=== PATIENT | female | born 1970 | race Caucasian/White ===

== ENCOUNTER 2016-09-17 13:03 | Emergency (ER) | payer OTHER ==
[2016-09-17 13:27] VITALS: BP 166/118
--- NOTE | 2016-09-17 15:19 | Emergency Department Report ---
- General Chief Complaint: Upper Respiratory Infection Stated Complaint: CHEST PAIN/SORE THROAT/CHILLS/COUGH/BODY ACHE/ Time Seen by Provider: 09/17/16 15:03 Source: patient Mode of arrival: Ambulatory Limitations: No Limitations - History of Present Illness MD Complaint: fever, cough, nasal congestion -: Gradual, hour(s) (36) Severity: mild Severity scale (0 -10): 2 Quality: aching Consistency: constant Improves With: nothing Context: sick contacts Associated Symptoms: fever, chills, myalgias, headache, nasal congestion Treatments Prior to Arrival: none - Related Data Previous Rx's Medication Instructions Recorded Last Taken Type ALBUTEROL Inhaler [ProAir HFA 2 puff IH QID PRN #1 inhalation 09/17/16 Unknown Rx Inhaler] Oseltamivir [Tamiflu] 75 mg PO BID #10 cap 09/17/16 Unknown Rx Prednisone [predniSONE (Tere) ER 50 mg PO QDAY #5 tablet. 09/17/16 Unknown Rx TAB] Promethazine [Phenergan TAB] 25 mg PO Q6HR PRN #25 tab 09/17/16 Unknown Rx Allergies Allergy/AdvReac Type Severity Reaction Status Date / Time No Known Allergies Allergy Unverified 09/17/16 13:27 ED Review of Systems ROS: Stated complaint: CHEST PAIN/SORE THROAT/CHILLS/COUGH/BODY ACHE/ Other details as noted in HPI Constitutional: chills, fever, malaise Eyes: denies: eye pain, eye discharge, vision change ENT: denies: ear pain, throat pain Respiratory: denies: cough, shortness of breath, wheezing Cardiovascular: denies: chest pain, palpitations Endocrine: no symptoms reported Gastrointestinal: denies: abdominal pain, nausea, diarrhea Genitourinary: denies: urgency, dysuria, discharge Musculoskeletal: arthralgia, myalgia. denies: back pain, joint swelling Skin: denies: rash, lesions Neurological: denies: headache, weakness, paresthesias Psychiatric: denies: anxiety, depression Hematological/Lymphatic: denies: easy bleeding, easy bruising ED Past Medical Hx - Past Medical History Previous Medical History?: Yes Additional medical history: childbirth - Surgical History Past Surgical History?: Yes Additional Surgical History: - Social History Smoking Status: Never Smoker Substance Use Type: Alcohol, Non Opiate Pain, Other - Medications Home Medications: Home Medications Medication Instructions Recorded Confirmed Last Taken Type ALBUTEROL Inhaler [ProAir HFA 2 puff IH QID PRN #1 inhalation 09/17/16 Unknown Rx Inhaler] Oseltamivir [Tamiflu] 75 mg PO BID #10 cap 09/17/16 Unknown Rx Prednisone [predniSONE (Tere) ER 50 mg PO QDAY #5 tablet. 09/17/16 Unknown Rx TAB] Promethazine [Phenergan TAB] 25 mg PO Q6HR PRN #25 tab 09/17/16 Unknown Rx ED Physical Exam - General Limitations: No Limitations General appearance: alert, in no apparent distress - Head Head exam: Present: atraumatic, normocephalic - Eye Eye exam: Present: normal appearance - ENT ENT exam: Present: mucous membranes moist - Neck Neck exam: Present: normal inspection. Absent: tenderness, meningismus, full ROM, lymphadenopathy - Respiratory Respiratory exam: Present: normal lung sounds bilaterally. Absent: respiratory distress, wheezes, rales, rhonchi - Cardiovascular Cardiovascular Exam: Present: regular rate, normal rhythm. Absent: systolic murmur, diastolic murmur, rubs, gallop - GI/Abdominal GI/Abdominal exam: Present: soft, normal bowel sounds - Extremities Exam Extremities exam: Present: normal inspection - Back Exam Back exam: Present: normal inspection - Neurological Exam Neurological exam: Present: alert, oriented X3 - Psychiatric Psychiatric exam: Present: normal affect, normal mood - Skin Skin exam: Present: warm, dry, intact, normal color. Absent: rash ED Course Vital Signs 09/17/16 13:22 Temperature 100.2 F H Pulse Rate 102 H Respiratory 20 Rate Blood Pressure 166/118 O2 Sat by Pulse 100 Oximetry Critical care attestation.: If time is entered above; I have spent that time in minutes in the direct care of this critically ill patient, excluding procedure time. ED Disposition Disposition: DISCHARGED TO HOME OR SELFCARE Is pt being admited?: No Condition: Stable Instructions: Influenza (ED) Prescriptions: ALBUTEROL Inhaler [ProAir HFA Inhaler] 2 puff IH QID PRN #1 inhalation PRN Reason: Shortness Of Breath Oseltamivir [Tamiflu] 75 mg PO BID #10 cap Prednisone [predniSONE (Tere) ER TAB] 50 mg PO QDAY #5 tablet. Promethazine [Phenergan TAB] 25 mg PO Q6HR PRN #25 tab PRN Reason: Nausea Referrals: PRIMARY CARE, [Primary Care Provider] - 3-5 Days Forms: Work/School Release Form(ED)
[2016-09-17] MEDS ORDERED: TYLENOL PO ONE (15:39)
--- NOTE | 2016-09-18 08:25 | XRay Report ---
ROUTINE CHEST, TWO VIEWS: HISTORY: Productive cough, fever. The trachea, heart, mediastinal contour, lung durant and bony thorax are unremarkable. IMPRESSION: Unremarkable chest x-ray.
== END 2016-09-17 17:22 | disposition home or self-care (01) ==
LOC: ED 13:03
DX: R50.9 Fever, unspecified (principal); R09.81 Nasal congestion; R05 Cough; Z53.21 Procedure and treatment not carried out due to patient leaving prior to being seen by health care provider
CPT/HCPCS: 71020; 99283

== ENCOUNTER 2020-08-07 08:43 | Observation (INO) | payer OTHER ==
--- NOTE | 2020-08-07 08:54 | Emergency Department Report ---
Blank Doc - Documentation Documentation: 49-year-old female that presents with heart pulsation/fluttering with chest pain and shortness of breath. 1- This initial assessment/diagnostic orders/clinical plan/ treatment(s) is/are subject to change based on pt's health status, clinical progression and re- assessment by fellow clinical providers in the ED. Further treatment and workup at subsequent clinical provers discretion. Patient/guardians urged not to elope from ED as their condition may be serious if not clinically assessed and managed. 2-cardiac work-up
[2020-08-07 09:20] LABS: Basophils # (Auto) 0.2 K/mm3 (0.0-0.1); Eosinophils # (Auto) 0.1 K/mm3 (0.0-0.4); Eosinophils % (Auto) 1.9 % (0.0-4.3); Monocytes # (Auto) 0.4 K/mm3 (0.0-0.8)
--- NOTE | 2020-08-07 09:30 | XRay Report ---
XR chest routine 2V INDICATION / CLINICAL INFORMATION: Chest Pain. COMPARISON: 09/17/2016 FINDINGS: SUPPORT DEVICES: None. HEART /PULMONARY VASCULATURE: No significant abnormality. LUNGS / PLEURA: No significant pulmonary or pleural abnormality. No pneumothorax. ADDITIONAL FINDINGS: No significant additional findings. IMPRESSION: 1. No acute findings. Signer Name: Eugene Douglas MD Signed: 08/07/2020 9:26 AM Workstation Name: [id number]
[2020-08-07 09:35] LABS: Alanine Aminotransferase 7 units/L (7-56); Albumin 4.2 g/dL (3.9-5); Blood Urea Nitrogen 7 mg/dL (7-17); Calcium 8.8 mg/dL (8.4-10.2); Hemolysis Index 2
[2020-08-07] MEDS ORDERED: ASPIRIN 325 MG TAB PO ONE (09:42)
[2020-08-07] MEDS ORDERED: NITROGLYCERIN 2% OINT 1 GM TP ONE (09:42)
[2020-08-07] MEDS ORDERED: fentaNYL 100 MCG/2 ML INJ IV ONE (09:42)
[2020-08-07] MEDS ORDERED: ONDANSETRON 4 MG/2 ML INJ IV ONE (09:42)
[2020-08-07 09:48] LABS: INR 1.05 (0.87-1.13)
--- NOTE | 2020-08-07 09:48 | Emergency Department Report ---
HPI - General Chief Complaint: Chest Pain Time Seen by Provider: 08/07/20 08:53 - HPI HPI: Room 40 The patient is a 49-year-old female present with a chief complaint of chest pain and syncope. Patient states she awakened this morning feeling weak. Patient states she developed a sharp pain under her left breast. Patient states she began to feel weak lightheaded and elevated heart rate. The patient states she came out of the shower and called to her mother and knew she was about to pass out so she sat herself down in her recliner. The patient's mother came upstairs to find the patient unconscious in the recliner. Patient states she has had s hortness of breath, diaphoresis and nausea without vomiting associated with this chest pain. Patient denies pleurisy or fever. Patient currently gives her pain a score of 2-3/10. The patient states her last stress test occurred over 10 years ago and she has never had a cardiac catheterization ED Past Medical Hx - Past Medical History Previous Medical History?: No Additional medical history: childbirth - Surgical History Past Surgical History?: No Additional Surgical History: - Family History Family history: no significant - Social History Smoking Status: Never Smoker Substance Use Type: None ( denies illicit drug), Alcohol (Rarely) ED Review of Systems ROS: Stated complaint: HEART FLUTTERS/CHEST PAIN Other details as noted in HPI Constitutional: diaphoresis Eyes: denies: eye pain ENT: denies: throat pain Respiratory: shortness of breath Cardiovascular: chest pain, palpitations Endocrine: no symptoms reported Gastrointestinal: nausea. denies: vomiting Genitourinary: denies: dysuria Musculoskeletal: denies: back pain Neurological: denies: headache Physical Exam - Physical Exam Vital Signs: Vital Signs 08/07/20 08:48 Temperature 98.5 F Pulse Rate 93 H Respiratory 20 Rate Blood Pressure 141/88 O2 Sat by Pulse 100 Oximetry Physical Exam: GENERAL: The patient is well-developed well-nourished female lying on stretcher not appearing to be in acute distress. [] HEENT: Normocephalic. Atraumatic. Extraocular motions are intact. Patient has moist mucous membranes. NECK: Supple. Trachea midline CHEST/LUNGS: Clear to auscultation. There is no respiratory distress noted. HEART/CARDIOVASCULAR: Regular. There is no tachycardia. There is no gallop rub or murmur. ABDOMEN: Abdomen is soft, nontender. Patient has normal bowel sounds. There is no abdominal distention. SKIN: There is no rash. There is no edema. There is no diaphoresis. NEURO: The patient is awake, alert, and oriented. The patient is cooperative. The patient has normal speech MUSCULOSKELETAL: There is no evidence of acute injury. ED Course Vital Signs 08/07/20 08:48 Temperature 98.5 F Pulse Rate 93 H Respiratory 20 Rate Blood Pressure 141/88 O2 Sat by Pulse 100 Oximetry ED Medical Decision Making - Lab Data Result diagrams: 08/07/20 09:08 08/07/20 09:08 - EKG Data -: EKG Interpreted by Me EKG shows normal: sinus rhythm Rate: normal - EKG Data When compared to previous EKG there are: previous EKG unavailable Interpretation: other (No ischemic changes seen) - Radiology Data Radiology results: report reviewed (Chest x-ray, CT chest, CT head), image reviewed (Chest x-ray, CT chest, CT head) interpreted by me: Chest x-ray-no focal infiltrates, no pneumothorax. No foreign body seen [facility] [address] [place] [address] XRay Report Signed Patient: HAJA BEJARANO MR#: [id number] : 1970 Acct:[id number] Age/Sex: 49 / F ADM Date: 08/07/20 Loc: ED Attending Dr: Ordering Physician: DENICE MICHAEL NP Date of Service: 08/07/20 Procedure(s): XR chest routine 2V Accession Number(s): [id number] cc: DENICE MICHAEL NP Fluoro Time In Minutes: XR chest routine 2V INDICATION / CLINICAL INFORMATION: Chest Pain. COMPARISON: 09/17/2016 FINDINGS: SUPPORT DEVICES: None. HEART /PULMONARY VASCULATURE: No significant abnormality. LUNGS / PLEURA: No significant pulmonary or pleural abnormality. No pneumothorax. ADDITIONAL FINDINGS: No significant additional findings. IMPRESSION: 1. No acute findings. Signer Name: Saurav Douglas MD Signed: 08/07/2020 9:26 AM Workstation Name: [id number] Transcribed By: JS Dictated By: SAURAV DOUGLAS MD Electronically Authenticated By: SAURAV DOUGLAS MD Signed Date/Time: 08/07/20925 DD/ 4 TD/TT: [address] [address] Cat Scan Report Signed Patient: HAJA BEJARANO MR#: [id number] : 1970 Acct:[id number] Age/Sex: 49 / F ADM Date: 08/07/20 Loc: ED Attending Dr: Ordering Physician: DARLYN SULTANA MD Date of Service: 08/07/20 Procedure(s): CT angio chest Accession Number(s): [id number] cc: DARLYN SULTANA MD CTA CHEST WITH CONTRAST INDICATION : Chest pain, syncope. TECHNIQUE: Axial imaging performed through the chest, with contrast bolus timing set to maximize opacification of the pulmonary arteries. Sagittal and coronal reformatted images. 3-plane MIP reformatted images were obtained. All CT scans at this location are performed using CT dose reduction for ALARA by means of automated exposure control. 100 mL of intravenous contrast administered. COMPARISON: None FINDINGS: Bolus: Contrast bolus timing is adequate. PTE: No filling defect is present to suggest PTE. Mediastinum: Heart and great vessels appear normal. No pathologic mediastinal adenopathy. Lungs: Lungs are clear. Bones: Degenerative changes in the spine with nothing acute. Upper abdomen: Limited images of the upper abdomen demonstrate a few scattered liver hypodensities measuring less than 2 cm. These probably represent small cysts or hemangiomas although they are incompletely evaluated on this exam. IMPRESSION: Negative for PTE. Clear lungs. Liver hypodensities as described. If further evaluation is needed multi phase CT with contrast would provide the most information. Signer Name: Tony Jarrell Jr, MD Signed: 08/07/2020 11:50 AM Workstation Name: [id number] Transcribed By: TTR Dictated By: TONY JARRELL JR, MD Electronically Authenticated By: TONY JARRELL JR, MD Signed Date/Time: 08/07/20 1150 DD/ 1147 TD/TT: [address] [address] Cat Scan Report Signed Patient: HAJA BEJARANO MR#: [id number] : Acct:[id number] Age/Sex: 49 / F ADM Date: 08/07/20 Loc: ED Attending Dr: Ordering Physician: DARLYN SULTANA MD Date of Service: 08/07/20 Procedure(s): CT head/brain wo con Accession Number(s): [id number] cc: DARLYN SULTANA MD CT HEAD WITHOUT CONTRAST INDICATION / CLINICAL INFORMATION: Chest pain, syncope. TECHNIQUE: Axial imaging performed from the skull apex through the skull base without the use of contrast. Sagittal and coronal reformatted images. All CT scans at this location are performed us ing CT dose reduction for ALARA by means of automated exposure control. COMPARISON: None available. FINDINGS: CEREBRAL PARENCHYMA: No acute parenchymal abnormality is appreciated. Chronic infarct in the left subfrontal region measures 2.4 x 1.5 x 1.8 cm. HEMORRHAGE: None. EXTRA- AXIAL SPACES: Normal in size and morphology for the patient's age. VENTRICULAR SYSTEM: Normal in size and morphology for the patient's age. MIDLINE SHIFT OR HERNIATION: None. CEREBELLUM / BRAINSTEM: No significant abnormality. CALVARIUM: No significant abnormality. ORBITS: Normal as visualized. PARANASAL SINUSES / MASTOID AIR CELLS: Normal as visualized. SOFT TISSUES of HEAD: No significant abnormality. ADDITIONAL FINDINGS: None. IMPRESSION: No acute intracranial abnormality. Chronic left frontal infarct as described. Signer Name: Tony Jarrell Jr, MD Signed: 08/07/2020 11:33 AM Workstation Name: [id number] Transcribed By: TTR Dictated By: TONY JARRELL JR, MD Electronically Authenticated By: TONY JARRELL JR, MD Signed Date/Time: 08/07/20 113 DD/ 1132 TD/TT: - Differential Diagnosis ACS, pericarditis, GERD, PE Critical care attestation.: If time is entered above; I have spent that time in minutes in the direct care of this critically ill patient, excluding procedure time. ED Disposition Clinical Impression: Chest pain, Syncope Disposition: OP ADMIT IP TO THIS HOSP Is pt being admited?: Yes Does the pt Need Aspirin: Yes Condition: Fair Instructions: Chest Pain (ED), Syncope (ED) Referrals: PRIMARY CARE, [Primary Care Provider] - 3-5 Days Time of Disposition: 12:18 (Hospitalist paged) HEART Score - HEART Score History: Moderately suspicious EKG: Normal Age: 45-65 Risk factors: 1-2 risk factors Troponin: Troponin T < 0.010 ng/mL (0.00-0.029) 08/07/20 09:08 Troponin: < normal limit HEART Score: 3
[2020-08-07 09:54] LABS: Partial Thromboplastin Time 23.4 Sec. (24.2-36.6)
[2020-08-07 10:14] LABS: BUN/Creatinine Ratio 10
[2020-08-07 10:30] LABS: Hematocrit 22.9 % (30.3-42.9); Hemoglobin 6.6 gm/dl (10.1-14.3); Mean Corpuscular HGB Conc 29 % (30-34); Mean Corpuscular Volume 52 fl (79-97); Platelet Count 461 K/mm3 (140-440); Red Blood Count 4.42 M/mm3 (3.65-5.03); Red Cell Distribution Width 19.8 % (13.2-15.2)
[2020-08-07 10:31] LABS: Basophils % (Auto) 2.6 % (0.0-1.8); Lymphocytes # (Auto) 1.6 K/mm3 (1.2-5.4); Lymphocytes % (Auto) 30.8 % (13.4-35.0)
--- NOTE | 2020-08-07 11:38 | Cat Scan Report ---
CT HEAD WITHOUT CONTRAST INDICATION / CLINICAL INFORMATION: Chest pain, syncope. TECHNIQUE: Axial imaging performed from the skull apex through the skull base without the use of cont rast. Sagittal and coronal reformatted images. All CT scans at this location are performed using CT dose reduction for ALARA by means of automated exposure control. COMPARISON: None available. FINDINGS: CEREBRAL PARENCHYMA: No acute parenchymal abnormality is appreciated. Chronic infarct in the left sub frontal region measures 2.4 x 1.5 x 1.8 cm. HEMORRHAGE: None. EXTRA-AXIAL SPACES: Normal in size and morphology for the patient's age. VENTRICULAR SYSTEM: Normal in size and morphology for the patient's age. MIDLINE SHIFT OR HERNIATION: None. CEREBELLUM / BRAINSTEM: No significant abnormality. CALVARIUM: No significant abnormality. ORBITS: Normal as visualized. PARANASAL SINUSES / MASTOID AIR CELLS: Normal as visualized. SOFT TISSUES of HEAD: No significant abnormality. ADDITIONAL FINDINGS: None. IMPRESSION: No acute intracranial abnormality. Chronic left frontal infarct as described. Signer Name: Tony Jarrell Jr, MD Signed: 08/07/2020 11:33 AM Workstation Name: [id number]
--- NOTE | 2020-08-07 11:54 | Cat Scan Report ---
CTA CHEST WITH CONTRAST INDICATION : Chest pain, syncope. TECHNIQUE: Axial imaging performed through the chest, with contrast bolus timing set to maximize opa cification of the pulmonary arteries. Sagittal and coronal reformatted images. 3-plane MIP reformatte d images were obtained. All CT scans at this location are performed using CT dose reduction for ALAR A by means of automated exposure control. 100 mL of intravenous contrast administered. COMPARISON: None FINDINGS: Bolus: Contrast bolus timing is adequate. PTE: No filling defect is present to suggest PTE. Mediastinum: Heart and great vessels appear normal. No pathologic mediastinal adenopathy. Lungs: Lungs are clear. Bones: Degenerative changes in the spine with nothing acute. Upper abdomen: Limited images of the upper abdomen demonstrate a few scattered liver hypodensities m easuring less than 2 cm. These probably represent small cysts or hemangiomas although they are incomp letely evaluated on this exam. IMPRESSION: Negative for PTE. Clear lungs. Liver hypodensities as described. If further evaluation is needed multi phase CT with contrast would provide the most information. Signer Name: Tony Jarrell Jr, MD Signed: 08/07/2020 11:50 AM Workstation Name: [id number]
[2020-08-07 11:57] LABS: Bilirubin,Urine NEG (Negative); Blood,Urine MOD (Negative); Color,Urine Straw (Yellow); Mucus,Urine FEW /HPF; Protein,Urine <15 mg/dL mg/dL (Negative); Urobilinogen,Urine < 2.0 mg/dL (<2.0)
[2020-08-07] MEDS ORDERED: SODIUM CHLORIDE 0.9% 500 ML 500 ML IV NR (21:40)
[2020-08-07] MEDS ORDERED: METOCLOPRAMIDE 10 MG/2 ML INJ IV PRN (21:43)
[2020-08-07] MEDS ORDERED: oxyCODONE /ACETAMINOPHEN 5-325MG TAB PO PRN (21:43)
[2020-08-07] MEDS ORDERED: ONDANSETRON 4 MG/2 ML INJ IV PRN (21:43)
[2020-08-07] MEDS ORDERED: ACETAMINOPHEN 325 MG TAB PO PRN (21:43)
[2020-08-07] MEDS ORDERED: SODIUM CHLORIDE 0.9% 1000 ML 1,000 ML IV SCH (21:45)
--- NOTE | 2020-08-07 21:50 | History and Physical Report ---
History of Present Illness Date of examination: 08/07/20 Date of admission: 08/07/20 12:19 Chief complaint: Chest pain and syncope History of present illness: The patient is a 49-year-old female present with a chief complaint of chest pain and syncope. Patient states she awakened this morning feeling weak. Patient states she developed a sharp pain under her left breast. Patient states she began to feel weak lightheaded and elevated heart rate. The patient states she came out of the shower and called to her mother and knew she was about to pass out so she sat herself down in her recliner. The patient's mother came upstairs to find the patient unconscious in the recliner. Patient states she has had shortness of breath, diaphoresis and nausea without vomiting associated with this chest pain. Patient denies pleurisy or fever. Patient currently gives her pain a score of 2-3/10. The patient states her last stress test occurred over 10 years ago and she has never had a cardiac catheterization - Past Medical History Previous Medical History?: No Additional medical history: childbirth - Surgical History Past Surgical History?: No Additional Surgical History: - Family History Family history: no significant - Social History Smoking Status: Never Smoker Substance Use Type: None ( denies illicit drug), Alcohol (Rarely) Review of Systems ROS: Stated complaint: HEART FLUTTERS/CHEST PAIN Other details as noted in HPI Constitutional: diaphoresis Eyes: denies: eye pain ENT: denies: throat pain Respiratory: shortness of breath Cardiovascular: chest pain, palpitations Endocrine: no symptoms reported Gastrointestinal: nausea. denies: vomiting Genitourinary: denies: dysuria Musculoskeletal: denies: back pain Neurological: denies: headache Medications and Allergies Allergies Allergy/AdvReac Type Severity Reaction Status Date / Time No Known Allergies Allergy Verified 08/07/20 08:46 Home Medications Medication Instructions Recorded Confirmed Last Taken Type No Known Home Medications [No 08/07/20 08/07/20 Unknown History Reported Home Medications] Exam - Constitutional Vitals: Temp Pulse Resp BP Pulse Ox 98.8 F 83 16 140/87 100 08/07/20 19:34 08/07/20 19:34 08/07/20 19:34 08/07/20 20:06 08/07/20 20:06 General appearance: Present: no acute distress, well-nourished - EENT Eyes: Present: PERRL ENT: hearing intact, clear oral mucosa - Neck Neck: Present: supple, normal ROM - Respiratory Respiratory effort: normal Respiratory: bilateral: CTA - Cardiovascular Heart rate: 78 Rhythm: regular Heart Sounds: Present: S1 & S2. Absent: rub, click - Extremities Extremities: pulses symmetrical, No edema Peripheral Pulses: within normal limits - Abdominal General gastrointestinal: Present: soft, non-tender, non-distended, normal bowel sounds Female genitourinary: Present: normal - Rectal Rectal Exam: deferred - Integumentary Integumentary: Present: clear, warm, dry - Musculoskeletal Musculoskeletal: gait normal, strength equal bilaterally - Psychiatric Psychiatric: appropriate mood/affect, intact judgment & insight - Neurologic Neurologic: CNII-XII intact, moves all extremities - Allied Health Allied health notes reviewed: nursing HEART Score - HEART Score EKG: Normal Age: 45-65 Risk factors: 1-2 risk factors Troponin: Troponin T < 0.010 ng/mL (0.00-0.029) 08/07/20 12:12 Troponin: < normal limit Results - Labs CBC & Chem 7: 08/08/20 06:41 08/08/20 06:41 Labs: Laboratory Last Values WBC 5.3 K/mm3 (4.5-11.0) 08/07/20 09:08 RBC 4.42 M/mm3 (3.65-5.03) 08/07/20 09:08 Hgb 6.6 gm/dl (10.1-14.3) L 08/07/20 09:08 Hct 22.9 % (30.3-42.9) L 08/07/20 09:08 MCV 52 fl (79-97) L 08/07/20 09:08 MCH 15 pg (28-32) L 08/07/20 09:08 MCHC 29 % (30-34) L 08/07/20 09:08 RDW 19.8 % (13.2-15.2) H 08/07/20 09:08 Plt Count 461 K/mm3 (140-440) H 08/07/20 09:08 Lymph % (Auto) 30.8 % (13.4-35.0) 08/07/20 09:08 [place]ala % (Auto) 7.0 % (0.0-7.3) 08/07/20 09:08 Eos % (Auto) 1.9 % (0.0-4.3) 08/07/20 09:08 Baso % (Auto) 2.6 % (0.0-1.8) H 08/07/20 09:08 Lymph # (Auto) 1.6 K/mm3 (1.2-5.4) 08/07/20 09:08 [place]ala # (Auto) 0.4 K/mm3 (0.0-0.8) 08/07/20 09:08 Eos # (Auto) 0.1 K/mm3 (0.0-0.4) 08/07/20 09:08 Baso # (Auto) 0.2 K/mm3 (0.0-0.1) H 08/07/20 09:08 Seg Neutrophils % 57.5 % (40.0-70.0) 08/07/20 09:08 Seg Neutrophils # 3.1 K/mm3 (1.8-7.7) 08/07/20 09:08 PT 13.5 Sec. (12.2-14.9) 08/07/20 09:08 INR 1.05 (0.87-1.13) 08/07/20 09:08 APTT 23.4 Sec. (24.2-36.6) L 08/07/20 09:08 D-Dimer 752.8 ng/mlDDU (0-234) H 08/07/20 09:08 Sodium 134 mmol/L (137-145) L 08/07/20 09:08 Potassium 3.7 mmol/L (3.6-5.0) 08/07/20 09:08 Chloride 100.8 mmol/L (98-107) 08/07/20 09:08 Carbon Dioxide 28 mmol/L (22-30) 08/07/20 09:08 Anion Gap 9 mmol/L 08/07/20 09:08 BUN 7 mg/dL (7-17) 08/07/20 09:08 Creatinine 0.7 mg/dL (0.6-1.2) 08/07/20 09:08 Estimated GFR > 60 ml/min 08/07/20 09:08 BUN/Creatinine Ratio 10 % 08/07/20 09:08 Glucose 99 mg/dL (65-100) 08/07/20 09:08 Calcium 8.8 mg/dL (8.4-10.2) 08/07/20 09:08 Magnesium 2.10 mg/dL (1.7-2.3) 08/07/20 09:08 Total Bilirubin 0.20 mg/dL (0.1-1.2) 08/07/20 09:08 AST 14 units/L (5-40) 08/07/20 09:08 ALT 7 units/L (7-56) 08/07/20 09:08 Alkaline Phosphatase 74 units/L (35-129) 08/07/20 09:08 Troponin T < 0.010 ng/mL (0.00-0.029) 08/07/20 12:12 Total Protein 7.6 g/dL (6.3-8.2) 08/07/20 09:08 Albumin 4.2 g/dL (3.9-5) 08/07/20 09:08 Albumin/Globulin Ratio 1.2 % 08/07/20 09:08 Urine Color Straw (Yellow) 08/07/20 11:12 Urine Turbidity Clear (Clear) 08/07/20 11:12 Urine pH 6.0 (5.0-7.0) 08/07/20 11:12 Ur Specific [place] 1.004 (1.003-1.030) 08/07/20 11:12 Urine Protein <15 mg/dl mg/dL (Negative) 08/07/20 11:12 Urine Glucose (UA) Neg mg/dL (Negative) 08/07/20 11:12 Urine Ketones Neg mg/dL (Negative) 08/07/20 11:12 Urine Blood Mod (Negative) 08/07/20 11:12 Urine Nitrite Neg (Negative) 08/07/20 11:12 Urine Bilirubin Neg (Negative) 08/07/20 11:12 Urine Urobilinogen < 2.0 mg/dL (<2.0) 08/07/20 11:12 Ur Leukocyte Esterase Neg (Negative) 08/07/20 11:12 Urine WBC (Auto) 2.0 /HPF (0.0-6.0) 08/07/20 11:12 Urine RBC (Auto) 51.0 /HPF (0.0-6.0) 08/07/20 11:12 Urine Mucus Few /HPF 08/07/20 11:12 Boyd/IV: Voiding Method Toilet Assessment and Plan Advance Directives: Yes (Full code) VTE prophylaxis?: Chemical Plan of care discussed with patient/family: Yes - Patient Problems (1) Chest pain Current Visit: Yes Status: Acute Plan to address problem: Chest pain work-up Serial troponins Lexiscan in the morning (2) Syncope Current Visit: Yes Status: Acute Plan to address problem: Syncope possibly secondary to anemia Carotid duplex scan requested Echocardiogram was not requested (3) Symptomatic anemia Current Visit: Yes Status: Acute Plan to address problem: To transfuse 1 unit of packed red blood cells Patient is iron deficient anemic Iron supplements as outpatient (4) Menorrhagia with irregular cycle Current Visit: Yes Status: Acute Plan to address problem: Menorrhagia secondary to endometriosis versus fibroids Patient to follow-up with [facility] as outpatient (5) DVT prophylaxis Current Visit: Yes Status: Acute Plan to address problem: On SCDs and GI prophylaxis
[2020-08-07] MEDS: FAMOTIDINE 20 MG/2 ML INJ IV SCH (23:42)
[2020-08-08 01:45] LABS: % Iron Saturation 3.24 %
[2020-08-08 07:10] LABS: Basophils # (Auto) 0.1 K/mm3 (0.0-0.1); Basophils % (Auto) 2.5 % (0.0-1.8); Eosinophils # (Auto) 0.2 K/mm3 (0.0-0.4); Eosinophils % (Auto) 2.7 % (0.0-4.3); Hematocrit 24.1 % (30.3-42.9); Hemoglobin 7.3 gm/dl (10.1-14.3); Lymphocytes % (Auto) 33.7 % (13.4-35.0); Mean Corpuscular HGB Conc 30 % (30-34); Mean Corpuscular Volume 56 fl (79-97); Monocytes # (Auto) 0.4 K/mm3 (0.0-0.8); Monocytes % (Auto) 7.7 % (0.0-7.3); Platelet Count 406 K/mm3 (140-440); Red Blood Count 4.35 M/mm3 (3.65-5.03); Red Cell Distribution Width 20.2 % (13.2-15.2)
[2020-08-08 07:24] LABS: Alanine Aminotransferase 6 units/L (7-56); Albumin 3.6 g/dL (3.9-5); BUN/Creatinine Ratio 15; Blood Urea Nitrogen 12 mg/dL (7-17); Calcium 8.4 mg/dL (8.4-10.2); Hemolysis Index 0
[2020-08-08] MEDS: FAMOTIDINE 20 MG/2 ML INJ IV SCH (09:14)
[2020-08-08] MEDS ORDERED: REGADENOSON 0.4 MG/5 ML INJ IV ONE (11:37)
--- NOTE | 2020-08-08 14:01 | Treadmill Report ---
PROCEDURE: Thallium stress test. LEFT VENTRICLE: Left ventricular chamber size is within normal spread. Perfusion study demonstrates homogeneous uptake of the tracer in all segments, no defects identified. Normal apical thinning is noted. Gated analysis demonstrates normal left ventricular systolic function, ejection fraction 71%. CONCLUSION: Normal myocardial perfusion study. JOB# [id number] CA/NTS
--- NOTE | 2020-08-08 15:42 | Ultrasound Report ---
US pelvic complete, US transvaginal INDICATION / CLINICAL INFORMATION: Menorrhagia. TECHNIQUE: Transabdominal. Duplex Color Doppler used: Yes. COMPARISON: None available FINDINGS: UTERUS: Retroflexed uterus measures 11.4 x 8.5 x 9.1 cm. -Endometrial stripe measures 1.4 cm. - Mass lesions: There are at least 3 heterogeneous lesions seen throughout the uterus with the larges t measuring approximately 3.9 cm. RIGHT ADNEXA: No significant ovarian cyst or mass. Normal color Doppler blood flow. LEFT ADNEXA: No significant ovarian cyst or mass. Normal color Doppler blood flow. URINARY BLADDER: No significant abnormality. FREE FLUID: None. ADDITIONAL FINDINGS: None. IMPRESSION: 1. Endometrial stripe is normal in thickness. There are a few uterine lesions which are most likely f ibroids. Otherwise, no significant abnormality. Signer Name: Jose Beckwith MD Signed: 08/08/2020 3:38 PM Workstation Name: [id number]
--- NOTE | 2020-08-08 15:49 | Vascular Lab Report ---
VL carotid duplex BILAT INDICATION / CLINICAL INFORMATION: Syncope COMPARISON: None available. FINDINGS: RIGHT CAROTID: - CCA velocity: 89 cm/sec. - ICA peak systolic velocity: 99 cm/sec. - ICA/CCA PSV Ratio: Normal Right Vertebral Artery: Antegrade flow. LEFT CAROTID: - CCA velocity: 121 cm/sec. - ICA peak systolic velocity: 117 cm/sec. - ICA/CCA PSV Ratio: Normal Left Vertebral Artery: Antegrade flow. IMPRESSION: 1. No occlusion or hemodynamically significant stenosis of the bilateral carotid arteries. Velocity criteria are extrapolated from diameter data as defined by the Society of Radiologists in Ul trasound Consensus Conference, Radiology 2003; 229;340-346. NO STENOSIS (NORMAL) * Plaque = none; ICA PSV < 125 cm/sec; ICA/CCA PSV Ratio < 2.0 <50% STENOSIS * Plaque < 50%; ICA PSV < 125 cm/sec; ICA/CCA PSV Ratio < 2.0 50-69% STENOSIS * Plaque > 50%; ICA PSV = 125-230 cm/sec; ICA/CCA PSV Ratio = 2.0-4.0 >70% BUT <100% STENOSIS * Plaque > 50%; ICA PSV > 230 cm/sec; ICA/CCA PSV Ratio > 4.0 NEAR OCCLUSION * Plaque = visible lumen; ICA PSV = high/low/none; ICA/CCA PSV Ratio = variable TOTAL OCCLUSION * Plaque = no lumen; ICA PSV = none; ICA/CCA PSV Ratio = N/A Signer Name: Jose Beckwith MD Signed: 08/08/2020 3:45 PM Workstation Name: [id number]
--- NOTE | 2020-08-08 17:18 | Discharge Summary ---
Providers - Providers Date of Admission: 08/07/20 12:19 Date of discharge: 08/08/20 Attending physician: PRAVIN CORREIA Primary care physician: [employer] [facility] Hospitalization Condition: Fair Pertinent studies: Pelvic ultrasound Endometrial stripe is normal in thickness There are a few uterine lesions which are most likely fibroids Otherwise no significant abnormality Transvaginal ultrasound Endometrial stripe is normal in thickness There are a few uterine lesions which are most likely fibroids: Hospital course: The patient is a 49-year-old female present with a chief complaint of chest pain and syncope. Patient states she awakened this morning feeling weak. Patient states she developed a sharp pain under her left breast. Patient states she began to feel weak lightheaded and elevated heart rate. The patient states she came out of the shower and called to her mother and knew she was about to pass out so she sat herself down in her recliner. The patient's mother came upstairs to find the patient unconscious in the recliner. Patient states she has had shortness of breath, diaphoresis and nausea without vomiting associated with this chest pain. Patient denies pleurisy or fever. Patient currently gives her pain a score of 2-3/10. The patient states her last stress test occurred over 10 years ago and she has never had a cardiac catheterization Patient had extensive work-up Lexiscan carotid duplex scan negative Pelvic ultrasound Shows fibroids Patient was given 1 unit of packed red blood cells after which she feels a lot better Hemoglobin improved from 6.6-7.3 Assessment and Plan Advance Directives: Yes (Full code) VTE prophylaxis?: Chemical Plan of care discussed with patient/family: Yes - Patient Problems (1) Chest pain Current Visit: Yes Status: Acute Plan to address problem: Chest pain work-up Serial troponins Lexiscan in the morning (2) Syncope Current Visit: Yes Status: Acute Plan to address problem: Syncope possibly secondary to anemia Carotid duplex scan requested Echocardiogram was not requested (3) Symptomatic anemia Current Visit: Yes Status: Acute Plan to address problem: To transfuse 1 unit of packed red blood cells Patient is iron deficient anemic Iron supplements as outpatient (4) Menorrhagia with irregular cycle Current Visit: Yes Status: Acute Plan to address problem: Menorrhagia secondary to endometriosis versus fibroids Patient to follow-up with [facility] as outpatient (5) DVT prophylaxis Current Visit: Yes Status: Acute Plan to address problem: On SCDs and GI prophylaxis Disposition: DC-01 TO HOME OR SELFCARE - Discharge Diagnoses (1) Chest pain Status: Acute (2) Syncope Status: Acute (3) Symptomatic anemia Status: Acute Comment: Patient will be discharged on ferrous gluconate 1 twice daily and follow-up with [facility] (4) Menorrhagia with irregular cycle Status: Acute Comment: patient to follow-up with regarding menorrhagia. Differential diagnosis of uterine fibroids and endometriosis (5) DVT prophylaxis Status: Acute Core Measure Documentation - Palliative Care Palliative Care/ Comfort Measures: Not Applicable - Core Measures Any of the following diagnoses?: none Exam - Constitutional Vitals: Temp Pulse Resp BP Pulse Ox 98.9 F 82 18 126/75 100 08/08/20 08:26 08/08/20 10:00 08/08/20 08:26 08/08/20 11:46 08/08/20 08:26 General appearance: Present: no acute distress, well-nourished - EENT Eyes: Present: PERRL ENT: hearing intact, clear oral mucosa, other (Pale mucous membranes) - Neck Neck: Present: supple, normal ROM - Respiratory Respiratory effort: normal Respiratory: bilateral: CTA - Cardiovascular Heart Sounds: Present: S1 & S2. Absent: rub, click - Extremities Extremities: pulses symmetrical, No edema Peripheral Pulses: within normal limits - Abdominal General gastrointestinal: Present: soft, non-tender, non-distended, normal bowel sounds Female genitourinary: Present: normal - Integumentary Integumentary: Present: clear, warm, dry - Musculoskeletal Musculoskeletal: gait normal, strength equal bilaterally - Psychiatric Psychiatric: appropriate mood/affect, intact judgment & insight - Neurologic Neurologic: CNII-XII intact, moves all extremities Plan Activity: no restrictions Diet: regular Follow up with: IVAN MORAN MD [Primary Care Provider] - 3-5 Days GUCCI BURT MD [Staff Physician] - 7 Days
[2020-08-08 17:56] VITALS: BP 110/78
== END 2020-08-08 18:36 | disposition home or self-care (01) ==
LOC: ED 08:43 → 4A 12:19
PROVIDERS: ADMIT Internal Medicine; ATTEND Internal Medicine
DX: R07.89 Other chest pain (principal); R55 Syncope and collapse; D64.9 Anemia, unspecified; N92.0 Excessive and frequent menstruation with regular cycle; Z98.891 History of uterine scar from previous surgery; Z79.899 Other long term (current) drug therapy
CPT/HCPCS: 36415; 36430; 70450; 71046; 71275; 76830; 76856; 78452; 80053; 81001; 83036; 83550; 83735; 84484; 85025; 85379; 85610; 85730; 86850; 86900; 86901; 86920; 93005; 93017; 93880; 96361; 96374; 96375; 96376; 99285; A9502; G0378; J2405; J2785; J3010; J7040; P9016

== ENCOUNTER 2021-02-06 07:32 | Day surgery (SDC) | payer OTHER ==
[2021-01-24 10:28] LABS: Mean Corpuscular HGB Conc 33 % (30-34); Mean Corpuscular Volume 78 fl (79-97); Platelet Count 279 K/mm3 (140-440); Red Blood Count 4.99 M/mm3 (3.65-5.03); Red Cell Distribution Width 15.6 % (13.2-15.2)
--- NOTE | 2021-02-05 17:05 | Short Stay Summary ---
Short Stay Documentation Date of service: 02/06/21 Narrative H&P: This is a 50 year-old female with a history of severe anemia d/t menorrhaga. She had an US that revealed a thicknend endometium, EMB performed 11/2020 the following: VERY SCANT BENIGN SUPERFICIAL INACTIVE ENDOMETRIUM. -NO HYPERPLASIA OR MALIGNANCY IDENTIFIED. -SEE COMMENT. COMMENT: The specimen is very scanty and superficial and may not adequately represent an underlying pathologic process. 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 of genital herpes: yes Hx of STD: HSV Other: HSV Active Medications (reviewed today): valacyclovir 500 mg tablet (valacyclovir) 1 by mouth twice a day as needed ferrous gluconate 324 mg (37.5 mg iron) tablet (ferrous gluconate) 1 by mouth once a day Current Allergies (reviewed today): No known allergies Past Medical History: Reviewed history from 08/16/2020 and no changes required: Anemia Past Surgical History: Reviewed history from 08/16/2020 and no changes required: x2 Tubal Ligation abdominoplasty (2019) Family History Summary: Reviewed history Last on 11/24/2020 and no changes required:02/05/2021 Other Family Member - Has No Family History of Uterine Cancer - Entered On: 09/10/2020 Other Family Member - Has No Family History of Small Bowel Cancer - Entered On: 09/10/2020 Other Family Member - Has No Family History of Stomach Cancer - Entered On: 09/10/2020 Other Family Member - Has No Family History of Pancreatic Cancer - Entered On: 09/10/2020 Other Family Member - Has No Family History of Ovarvian Cancer - Entered On: 09/10/2020 Other Family Member - Has No Family History of Kidney/Urinary Tract Cancer - Entered On: 09/10/2020 Other Family Member - Has No Family History of Spontaneous DVT-PE - Entered On: 09/10/2020 Other Family Member - Has No Family History of Colon Cancer - Entered On: 09/10/2020 Other Family Member - Has No Family History of Brain Cancer - Entered On: 09/10/2020 Other Family Member - Has No Family History of Breast Cancer - Entered On: 09/10/2020 Other Family Member - Has No Family History of Biliary Tract Cancer - Entered On: 09/10/2020 Social History: Reviewed history from 08/16/2020 and no changes required: Patient is single Smoking History: Patient has never smoked. Risk Factors: Smoked Tobacco Use: Never smoker Smokeless Tobacco Use: Never Passive Smoke Exposure: no HIV High Risk Behavior: no Exercise: yes Times/wk: 5 Seatbelt Use: 100 % Mammogram History: Date of Last Mammogram: 01/02/2021 Results: Category 0 PAP Smear History: Date of Last PAP Smear: 12/14/2020 Results: Normal Alcohol Use: yes Type: occ Drinks per day: social Drug Use: no Previous Tobacco Use: Signed On - 12/14/2020 Smoked Tobacco Use: Never smoker Smokeless Tobacco Use: Never Passive Smoke Exposure: no HIV High Risk Behavior: no Exercise: yes Times/wk: 5 Type of Exercise: cardio and body weights Seatbelt Use: 100 % Alcohol Use: yes Type: social Drug Use: no Physical Exam Appearance: well developed, well nourished, no acute distress Other Exams Lungs: no rales, rhonchi, or wheezes Heart: S1, S2, no murmur, rub, or gallop Genitourinary Exam Uterus: deferred for EUA Impression & Recommendations: Problem # 1: Menorrhagia (ICD-626.2) (IBZ08-Q70.0) Inconclusive EMB Consent reviewed and signed . Possible laparoscopy or laparotomy explained to patient. The risks and alternatives for this surgery were reviewed with the patient. She was informed of, but not limited to, possible bleeding, infection, injury to bowel, bladder, ureters or other adjacent organs oruterine perforation. . The patient was instructed/informed the following: The normal length of hospital stay for this procedure. Nothing to eat or drink after midnight the evening prior to surgery. Patient to call for any signs or symptoms of infection. The usual discomforts associated with this procedure were detailed. Proper use of pain medicines was reviewed. Patient was given ample opportunity to have all her questions answered before signing informed consent. Problem # 2: Fibroids of uterus; Intramural (ICD-218.1) ([id number]) Problem # 3: Anemia due to chronic blood loss (ICD-280.0) (MTO53-T65.0) Medications Added to Medication List This Visit: 1) Valacyclovir 500 Mg Tablet (Valacyclovir) .... 1 by mouth twice a day as needed 2) Ferrous Gluconate 324 Mg (37.5 Mg Iron) Tablet (Ferrous gluconate) .... 1 by mouth once a day Patient has been reassessed/reevaluated/re-examined. H&P has been reviewed. No interval changes. - Allergies and Medications Current Medications: Allergies No Known Allergies Allergy (Verified 08/07/20 08:46) Home Medications Medication Instructions Recorded Confirmed Last Taken Type Ferrous Gluconate [Ferrous 324 mg PO QDAY 90 Days #90 tablet 08/08/20 Unknown Rx Gluconate 324 MG] Active Medications Acetaminophen (Acetaminophen 500 Mg Tab) 1,000 mg PO PREOP ASIF Stop: 02/06/21 23:59 Lactated Ringer's (Lactated Ringers) 1,000 mls @ 100 mls/hr IV DIRECT ASIF Stop: 02/06/21 23:59 Midazolam HCl (Midazolam 2 Mg/2 Ml Inj) 2 mg IV PREOP NR Stop: 02/06/21 23:59 - Brief post op/procedure progress note Date of procedure: 02/06/21 Pre-op diagnosis: Menorrhagia, fibroids, history of anemia Post-op diagnosis: same (With endometrial polyp) Procedure: 1. Exam under anesthesia 2. Cervical dilation 3. Hysteroscopic polypectomy 4. Uterine curettage Anesthesia: MAC (LMA) Findings: Exam under anesthesia revealed the uterus to be approximately 15 weeks. Anterior fundal left polyp otherwise cavity appeared to be normal. Uterus sounded to 12 cm Surgeon: GUCCI BURT Estimated blood loss: minimal Pathology: list (Endometrial tissue and endometrial polyp) Specimen disposition: to lab Condition: stable - Disposition Condition at discharge: Good Disposition: 01 HOME / SELF CARE / HOMELESS - Discharge Diagnoses (1) Fibroids Status: Acute (2) Endometrial polyp Status: Acute (3) Menorrhagia with irregular cycle Status: Acute Comment: patient to follow-up with regarding menorrhagia. Differential diagnosis of uterine fibroids and endometriosis Short Stay Discharge Plan Activity: other (No sex. No driving for 48 hours. Ambulating to property approximately 1 mile a day.Void frequently) Weight Bearing Status: Full Weight Bearing Diet: regular (Eat small meals frequently. Drink 64 ounces of water daily. . Avoid spicy, salty and high fat foods.) Special Instructions: no heavy lifting (Greater than 25 pounds.) Follow up with: PRIMARY CARE, [Primary Care Provider] - 7 Days GUCCI BURT MD [Staff Physician] - (As scheduled) Prescriptions: Ibuprofen [Motrin 800 MG tab] 800 mg PO Q8HR PRN #30 tablet PRN Reason: Pain, Moderate (4-6) oxyCODONE /ACETAMINOPHEN [Percocet 5/325 mg] 1 - 2 tab PO Q6HR PRN #7 tablet PRN Reason: Pain
[~2021-02-06 07:32] MED LIST: ACETAMINOPHEN 500 MG TAB PO SCH; LACTATED RINGERS 1,000 ML IV SCH; MIDAZOLAM 2 MG/2 ML INJ IV NR; SODIUM CHLORIDE 0.9% IRRIG SOLN 2000 ML IR ONE
--- NOTE | 2021-02-06 09:08 | Anesthesia Consultation ---
Anesthesia Consult and Med Hx Date of service: 02/06/21 - Airway Anesthetic Teeth Evaluation: Good ROM Head & Neck: Adequate Mental/Hyoid Distance: Adequate Mallampati Class: Class II Intubation Access Assessment: Probably Good - Pre-Operative Health Status ASA Pre-Surgery Classification: ASA2 Proposed Anesthetic Plan: General - Pulmonary Hx Smoking: No Hx Respiratory Symptoms: No - Cardiovascular System Hx Hypertension: No (denies prior dx but BP elevated in PAT and in preop) Hx Heart Attack/AMI: No (normal stress test 07/2020) - Central Nervous System CVA: No - Endocrine Hx Renal Disease: No Hx Liver Disease: No Hx Insulin Dependent Diabetes: No Hx Non-Insulin Dependent Diabetes: No Hx Thyroid Disease: No - Other Systems Hx Obesity: No - Additional Comments Anesthesia Medical History Comments: No hx anesthetic complications.
--- NOTE | 2021-02-06 09:08 | Anesthesia Day of Surgery ---
Anesthesia Day of Surgery - Day of Surgery Patient Examined: Yes Patient H&P Reviewed: Yes Patient is NPO: Yes
[2021-02-06] MEDS ORDERED: LIDOCAINE PF 100 MG/5 ML (CARDIAC SYRINGE) IV ONE (10:23)
[2021-02-06] MEDS ORDERED: propofoL 200 MG/20 ML VIAL IV ONE (10:24)
[2021-02-06] MEDS ORDERED: fentaNYL 250 MCG/5 ML INJ ONE (10:24)
[2021-02-06] MEDS ORDERED: fentaNYL 100 MCG/2 ML INJ ONE (10:25)
[2021-02-06] MEDS ORDERED: MIDAZOLAM 2 MG/2 ML INJ ONE (10:36)
[2021-02-06] MEDS ORDERED: ONDANSETRON 4 MG/2 ML INJ ONE (11:00)
[2021-02-06] MEDS ORDERED: dexAMETHasone 20 MG/5 ML VIAL ONE (11:00)
[2021-02-06] MEDS ORDERED: SODIUM CHLORIDE 0.9% IRRIG SOLN 2000 ML IR ONE ×2 (11:01)
[2021-02-06] MEDS ORDERED: SODIUM CHLORIDE 0.9% IRR 1,000 ML BOTTLE IR ONE (11:01)
[2021-02-06] MEDS ORDERED: KETOROLAC 30 MG/1 ML INJ ONE (11:33)
--- NOTE | 2021-02-06 11:56 | Operative Report ---
Operative Report Operative Report: Date: 02/06/2021 PREOPERATIVE DIAGNOSES: 1. Menorrhagia 2. Uterine fibroid 3. History of anemia POSTOPERATIVE DIAGNOSES: 1. Menorrhagia 2. Uterine fibroid 3. History of anemia PROCEDURE PERFORMED: 1. Exam under anesthesia 2. Cervical dilation 3. Hysteroscopic polypectomy 2. Uterine curettage ANESTHESIA: General ESTIMATED BLOOD LOSS: Less than 50 cc. INDICATIONS: This is a 50-year-old -[place] female that presents above diagnosis. PROCEDURE: The patient was seen in the preoperative suite. Expected procedure and postoperative course discussed with her. She was taken to the operative suite where general anesthesia was performed. She was placed in a dorsal lithotomy position. . A bimanual exam was done, the uterus was found to be approximately 15 weeks. She was prepped and draped in the normal sterile fashion. Timeout was performed. Her bladder was drained with the red Seth catheter which produced approximately 50 cc of clear yellow urine. The cervix and vagina were grossly normal with no obvious masses or deformities. A bivalve operative speculum was placed in the vagina and the anterior lip of the cervix was grasped with the single-tooth tenaculum. The uterus was sounded to ~12 cm. The cervix was progressively dilated to allow the operative hysteroscope. Under direct visualization, the ostia were within normal limits. The endometrial lining appeared thick, however, there was no obvious evidence of malignancy. A polyp was noted on the anterior left lateral fundal region of the uterus. Using the MyoSure Reach device, polypectomy was performed under direct visualization. The hysteroscope was removed and a small sharp curette was placed intrauterine very carefully using anterior wall for guidance. Endometrial curettings were obtained. The endometrial sampling was placed on Telfa pad and sent to Pathology for evaluation, permanent. The hyste roscope was introduced again, no evidence of perforation was noted. At this point procedure was ended. The single-tooth tenaculum and speculum were removed. The cervix was found to be hemostatic. Tissue obtained with the MyoSure device that was collected in the trap was also sent in separate containers to pathology. Counts were correct. Patient was taken to the PACU stable. Distention fluid: Normal saline Deficit: 150 mL
--- NOTE | 2021-02-06 12:13 | Post Anesthesia Evaluation ---
- Post Anesthesia Evaluation Patient Participated: Yes Airway Patent: Yes Stable Respiratory Function: Yes Nausea/Vomiting: No Temp > 96.8F: Yes Pain Manageable: Yes Adequeate Hydration: Yes Anesthesia Complications: No
[2021-02-06 12:17] VITALS: BP 149/88
[2021-02-06] MEDS ORDERED: ONDANSETRON 4 MG/2 ML INJ IV PRN (12:30)
[2021-02-06] MEDS ORDERED: oxyCODONE /ACETAMINOPHEN 5-325MG TAB PO PRN (12:30)
[2021-02-06] MEDS ORDERED: HYDROmorphone 1 MG/1 ML INJ IV PRN (12:30)
== END 2021-02-06 12:50 | disposition home or self-care (01) ==
LOC: OR 07:32
PROVIDERS: ATTEND Obstetrics & Gynecology
DX: N92.0 Excessive and frequent menstruation with regular cycle (principal); D25.9 Leiomyoma of uterus, unspecified; N84.0 Polyp of corpus uteri; D64.9 Anemia, unspecified; Z79.899 Other long term (current) drug therapy; Z98.890 Other specified postprocedural states; Z20.822 Contact with and (suspected) exposure to COVID-19
CPT/HCPCS: 36415; 58558; 81025; 85027; 88305; A4217; C1782; J1100; J1885; J2001; J2250; J2405; J2704; J3010; J7120; U0003